=== PATIENT | female | born 1990 ===

== ENCOUNTER 2017-10-14 14:50 | Emergency (ER) | payer SELFPAY | END 2017-10-14 16:13 | disposition home or self-care (01) | LOC: ED 14:50 | DX: R11.2 Nausea with vomiting, unspecified (principal); Z53.21 Procedure and treatment not carried out due to patient leaving prior to being seen by health care provider ==

== ENCOUNTER 2018-06-20 10:52 | Emergency (ER) | payer OTHER ==
[2018-06-20 12:49] LABS: HCG Qualitative,Urine Negative (Negative)
[2018-06-20 12:50] LABS: Bilirubin,Urine NEG (Negative); Blood,Urine LG (Negative); Color,Urine Yellow (Yellow); Mucus,Urine 3+ /HPF
[2018-06-20] MEDS ORDERED: ZOFRAN IV ONE (12:56)
[2018-06-20] MEDS ORDERED: NACL 0.9% 1000 ML 1,000 ML IV ONE ×2 (12:56→14:40)
[2018-06-20] MEDS ORDERED: MORPHINE IV ONE ×2 (12:57→14:40)
--- NOTE | 2018-06-20 13:08 | Emergency Department Report ---
HPI - General Chief Complaint: Nausea/Vomiting/Diarrhea Time Seen by Provider: 06/20/18 12:52 - HPI HPI: 28-year-old AA female presents to the emergency department with a complaint of abdominal pain, nausea and vomiting has been going on since yesterday. The abdominal pain is generalized but worse in the upper quadrants of the abdomen. She has not taken anything for her symptoms prior to presentation. She has a history of hypertension and presents with some elevated blood pressure but is not compliant with her blood pressure medications and has run out. She has a new appointment with a physician at [facility] coming up on the but does not currently have a primary care physician otherwise. No recent travel or sick contacts at home. She denies any constipation, diarrhea, vaginal bleeding or discharge, dysuria, fever. ED Past Medical Hx - Past Medical History Previous Medical History?: Yes Hx Hypertension: Yes - Surgical History Past Surgical History?: Yes Hx Cholecystectomy: Yes - Social History Smoking Status: Never Smoker Substance Use Type: None - Medications Home Medications: Home Medications Medication Instructions Recorded Confirmed Last Taken Type HYDROcodone/APAP 5-325 [[place] 1 each PO Q6HR PRN #10 tablet 06/20/18 Unknown Rx 5/325] Nitrofurantoin [place]/M-Cryst 100 mg PO Q12HR #14 capsule 06/20/18 Unknown Rx [Macrobid CAP] Ondansetron [Zofran Odt] 4 mg PO Q8H PRN #10 tab.rapdis 06/20/18 Unknown Rx ED Review of Systems ROS: Stated complaint: STOMACH PAIN/PAIN Other details as noted in HPI Comment: All other systems reviewed and negative Constitutional: denies: chills, fever Eyes: denies: eye pain, eye discharge, vision change ENT: denies: ear pain, throat pain Respiratory: denies: cough, shortness of breath, wheezing Cardiovascular: denies: chest pain, palpitations Gastrointestinal: abdominal pain, nausea, vomiting Genitourinary: denies: urgency, dysuria, discharge Musculoskeletal: denies: back pain, joint swelling, arthralgia Skin: denies: rash, lesions Neurological: denies: headache, weakness, paresthesias Physical Exam - Physical Exam Vital Signs: Vital Signs 06/20/18 10:55 Temperature 98.6 F Pulse Rate 112 H Respiratory 20 Rate Blood Pressure 153/109 O2 Sat by Pulse 100 Oximetry Physical Exam: GENERAL: The patient is well-developed well-nourished. HENT: Normocephalic. Atraumatic. Patient has moist mucous membranes. EYES: Extraocular motions are intact. Pupils equal reactive to light bilaterally. NECK: Supple. Trachea is midline. CHEST/LUNGS: Clear to auscultation. There is no respiratory distress noted. HEART/CARDIOVASCULAR: Regular. There is no tachycardia. There is no murmur. ABDOMEN: Abdomen is soft. There is generalized abdominal pain to palpation that is worse in the upper quadrants. No guarding. Patient has normal bowel sounds. There is no abdominal distention. SKIN: Skin is warm and dry. NEURO: The patient is awake, alert, and oriented. The patient is cooperative. The patient has no focal neurologic deficits. The patient has normal speech. MUSCULOSKELETAL: There is no tenderness or deformity. There is no limitation range of motion. There is no evidence of acute injury. ED Course Vital Signs 06/20/18 10:55 Temperature 98.6 F Pulse Rate 112 H Respiratory 20 Rate Blood Pressure 153/109 O2 Sat by Pulse 100 Oximetry ED Medical Decision Making - Lab Data Result diagrams: 06/20/18 13:01 06/20/18 13:01 - Radiology Data Radiology results: report reviewed, image reviewed interpreted by me: Abdominal x-ray shows nonspecific nonobstructive to bowel gas EXAM: CT ABDOMEN PELVIS W CON HISTORY: Abd pain TECHNIQUE: CT examination of the ABDOMEN after IV contrast CT examination of the PELVIS after IV contrast PRIORS: None. FINDINGS: Nonspecific slight sclerosis on the iliac side of both SI joints may be degenerative change. Differential includes sacroiliitis. Surgically absent gallbladder with reservoir effect in the biliary tree. Normal-appearing liver, adrenals, pancreas, and spleen. Intact normal caliber abdominal aorta and IVC. Nonspecific, smoothly marginated, simple appearing, low density bilateral renal lesions are statistically most likely cysts. Otherwise normal-appearing kidneys and proximal ureters. Distal ureters obscured by adjacent anatomy. No hydronephrosis. Small fat containing umbilical hernia. No inguinal hernia. No retroperitoneal adenopathy. No evidence of mesenteric mass. Normal-appearing stomach and duodenum. No small bowel distention in the abdomen and pelvis. No pelvic free fluid. IUD in place in central endometrial cavity. Otherwise normal-appearing uterus and adnexa. Normal-appearing rectum. Nonspecific diffuse urinary bladder mural thickening. Normal-appearing sigmoid colon. No gross ascites, free air, or colonic distention. Normal-appearing cecum, terminal ileum, and appendix. IMPRESSION: Nonspecific SI joint subarticular sclerosis may be degenerative change. Differential includes sacroiliitis bilaterally Diffuse urinary bladder mural thickening may be edema, inflammation, or cystitis Surgically absent gallbladder with reservoir effect in the biliary tree Small fat containing umbilical hernia Transcribed By: KE Dictated By: HAILY WILLINGHAM MD Electronically Authenticated By: HAILY WILLINGHAM MD Signed Date/Time: 06/20/18 168 - Medical Decision Making Patient presents with a one-day history of abdominal pain, nausea and vomiting. She has some reproducible tenderness to palpation of the abdomen the abdomen is soft and does not appear toxic or rigid. Labs are mostly unremarkable. No significant leukocytosis, normal electrolytes and normal belly labs. Patient is not . She may have the beginnings of a very mild urinary tract infection. Abdominal x-ray does not show any acute process. CT scan of the abdomen and pelvis shows some inflammation, cystitis or edema of the bladder and a small fat containing umbilical hernia but otherwise no significant process or etiology of her symptoms. She was given IV fluid, pain medication and nausea medications and is feeling improved. Vital signs stable throughout her ED course including being afebrile. The patient will be discharged home to follow up with primary care and gastroenterology. She will return to the ER with any worsening of her symptoms or any acute distress. - Differential Diagnosis UTI, appendicitis, gastritis, colitis Critical Care Time: No Critical care attestation.: If time is entered above; I have spent that time in minutes in the direct care of this critically ill patient, excluding procedure time. ED Disposition Clinical Impression: Hypokalemia Abdominal pain Qualifiers: Abdominal location: generalized Qualified Code(s): R10.84 - Generalized abdominal pain Nausea and vomiting Qualifiers: Vomiting type: unspecified Vomiting Intractability: non-intractable Qualified Code(s): R11.2 - Nausea with vomiting, unspecified UTI (urinary tract infection) Qualifiers: Urinary tract infection type: acute cystitis Hematuria presence: without hematuria Qualified Code(s): N30.00 - Acute cystitis without hematuria Disposition: TO HOME OR SELFCARE Is pt being admited?: No Condition: Stable Instructions: Abdominal Pain (ED), Acute Nausea and Vomiting (ED), Urinary Tract Infection in Women (ED), Hypokalemia (ED) Additional Instructions: Please follow up with a primary care physician in the next few days. I have given him a referral for a local blender snuff, Dr. Chance, to follow up regarding your abdominal pains. Return to the emergency Department with any worsening of her symptoms or any acute distress. You have been prescribed a medication that is sedating and therefore should not be taken prior to driving, working, and responsible for children and in no way should be mixed with alcohol of any quantity. Prescriptions: HYDROcodone/APAP 5-325 [[place] 5/325] 1 each PO Q6HR PRN #10 tablet PRN Reason: Pain Nitrofurantoin [place]/M-Cryst [Macrobid CAP] 100 mg PO Q12HR #14 capsule Ondansetron [Zofran Odt] 4 mg PO Q8H PRN #10 tab.rapdis PRN Reason: Nausea Referrals: PRIMARY CAREMD [Primary Care Provider] - 3-5 Days WILLOW CHANCE MD [Staff Physician] - 3-5 Days [facility] [place] [Outside] - 3-5 Days Time of Disposition: 18:11
[2018-06-20 13:14] LABS: Basophils % (Auto) 0.2 % (0.0-1.8); Hematocrit 43.9 % (30.3-42.9); Hemoglobin 14.6 gm/dl (10.1-14.3); Lymphocytes # (Auto) 1.9 K/mm3 (1.2-5.4); Lymphocytes % (Auto) 23.9 % (13.4-35.0); Mean Corpuscular HGB Conc 33 % (30-34); Mean Corpuscular Hemoglobin 28 pg (28-32); Mean Corpuscular Volume 85 fl (79-97); Monocytes # (Auto) 0.6 K/mm3 (0.0-0.8); Monocytes % (Auto) 7.4 % (0.0-7.3); Platelet Count 321 K/mm3 (140-440); Red Blood Count 5.16 M/mm3 (3.65-5.03); Red Cell Distribution Width 15.8 % (13.2-15.2)
[2018-06-20 13:29] LABS: Alanine Aminotransferase 36 units/L (7-56); Albumin 4.8 g/dL (3.9-5); BUN/Creatinine Ratio 24; Blood Urea Nitrogen 12 mg/dL (7-17); Calcium 10.8 mg/dL (8.4-10.2); Hemolysis Index 4; Lipase 36 units/L (13-60)
[2018-06-20] MEDS ORDERED: K-DUR PO ONE (13:33)
--- NOTE | 2018-06-20 14:03 | XRay Report ---
ABDOMEN RADIOGRAPHS INDICATION: Abdominal pain. COMPARISON: None similar at this institution. FINDINGS: An upright thoracoabdominal and a supine frontal abdominal radiographs demonstrate nonobstructive bowel gas pattern. No focal suspicious calcifications, pneumatosis or pneumoperitoneum. Right hepatic lobe may be approximately 18-19 cm craniocaudal. Cholecystectomy clips. IUD and a left hemipelvic surgical clip also noted. Clear visualized lung bases. Slight lumbar levocurvature apex about L3-L4. CONCLUSION: Findings, as above, including slight hepatomegaly questioned. Please correlate. Thank you for the opportunity to participate in this patient's care.
--- NOTE | 2018-06-20 17:48 | Cat Scan Report ---
FINAL REPORT EXAM: CT ABDOMEN PELVIS W CON HISTORY: Abd pain TECHNIQUE: CT examination of the ABDOMEN after IV contrast CT examination of the PELVIS after IV contrast PRIORS: None. FINDINGS: Nonspecific slight sclerosis on the iliac side of both SI joints may be degenerative change. Differential includes sacroiliitis. Surgically absent gallbladder with reservoir effect in the biliary tree. Normal-appearing liver, adrenals, pancreas, and spleen. Intact normal caliber abdominal aorta and IVC. Nonspecific, smoothly marginated, simple appearing, low density bilateral renal lesions are statistically most likely cysts. Otherwise normal-appearing kidneys and proximal ureters. Distal ureters obscured by adjacent anatomy. No hydronephrosis. Small fat containing umbilical hernia. No inguinal hernia. No retroperitoneal adenopathy. No evidence of mesenteric mass. Normal-appearing stomach and duodenum. No small bowel distention in the abdomen and pelvis. No pelvic free fluid. IUD in place in central endometrial cavity. Otherwise normal-appearing uterus and adnexa. Normal-appearing rectum. Nonspecific diffuse urinary bladder mural thickening. Normal-appearing sigmoid colon. No gross ascites, free air, or colonic distention. Normal-appearing cecum, terminal ileum, and appendix. IMPRESSION: Nonspecific SI joint subarticular sclerosis may be degenerative change. Differential includes sacroiliitis bilaterally Diffuse urinary bladder mural thickening may be edema, inflammation, or cystitis Surgically absent gallbladder with reservoir effect in the biliary tree Small fat containing umbilical hernia
[2018-06-20 18:22] VITALS: BP 124/86
== END 2018-06-20 18:21 | disposition home or self-care (01) ==
LOC: ED 10:52
DX: N30.00 Acute cystitis without hematuria (principal); E87.6 Hypokalemia; I10 Essential (primary) hypertension; Z90.49 Acquired absence of other specified parts of digestive tract; Z79.899 Other long term (current) drug therapy
CPT/HCPCS: 36415; 74019; 74177; 80053; 81001; 81025; 83690; 85025; 96361; 96374; 96375; 96376; 99284; J2270; J2405; J7030; Q9967